=== PATIENT | female | born 1990 | race Caucasian/White ===

== ENCOUNTER 2021-01-02 08:55 | Outpatient (REF) | payer BC, SELFPAY ==
--- NOTE | 2021-01-02 08:13 | PAPFT_PTH ---
PATIENT: Josie Bonilla LOC: [facility] #:[id number] AGE/SX: 30/F ROOM: RE01/02/[address]: Boom Kuhn : 1990 BED: DIS: 01/02/2021 SPEC #: [id number] RECD: 01/02/21 13:23 STATUS: NELY REQ #: [id number] NABEEL: 01/02/21 08:[address]: Boom Kuhn DEPT: [facility] Cytology RECD BY: Fatou Hartman Tissues: 1 - CX/ENDOCX FOR PAP SMEARS Procedures: PAP THIN PREP/[facility] Screening HPV DNA PROBE Comments: [id number]
== END 2021-01-02 08:56 | disposition home or self-care (01) ==
LOC: NCHCN 08:55
PROVIDERS: PCP Family Medicine; Visit Provider Family Medicine
DX: Z00.00 Encounter for general adult medical examination without abnormal findings (principal); Z12.4 Encounter for screening for malignant neoplasm of cervix; Z11.51 Encounter for screening for human papillomavirus (HPV)
CPT/HCPCS: 88142; 87624

== ENCOUNTER 2022-01-08 18:13 | Outpatient (REF) | payer BC, SELFPAY ==
[2022-01-08 14:34] LABS: HCT 40.8 % (36.0-46.0); HGB 12.9 g/dL (11.2-15.7); MCH 29.5 pg (27.0-33.0); MCHC 31.6 % (32.0-36.0); MCV 93 fL (80-95); MPV 11.7 fL (8.0-11.0); Platelet Count 243 10^3/uL (130-400); RBC 4.37 10^6/uL (3.93-5.22); RDW 11.9 % (11.7-14.6); RDW-SD 41.1 fL
[2022-01-08 16:28] LABS: Anion Gap 8.2 mmol/L (3-11); BUN 18 mg/dL (7-18); CO2 28.8 mmol/L (21.0-32.0); CREATININE 0.8 mg/dL (0.55-1.02); Calcium 8.9 mg/dL (8.5-10.1); Chloride 101 mmol/L (98-107); Glucose 63 mg/dL (74-106); Sodium 138 mmol/L (136-145); TSH (W/Ref FT4) 3.48 uIU/mL (0.36-3.74)
== END 2022-01-08 18:14 | disposition home or self-care (01) ==
LOC: NCHCN 18:13
PROVIDERS: PCP Family Medicine; Visit Provider Nurse Practitioner Family
DX: Z00.00 Encounter for general adult medical examination without abnormal findings (principal); Z13.29 Encounter for screening for other suspected endocrine disorder; Z13.0 Encounter for screening for diseases of the blood and blood-forming organs and certain disorders involving the immune mechanism; Z13.228 Encounter for screening for other metabolic disorders
CPT/HCPCS: 80048; 85027; 84443